=== PATIENT | female | born 1965 | race Caucasian/White ===

== ENCOUNTER → 2019-01-29 13:30 | Outpatient (CLI) | payer OTHER, SELFPAY ==
[2017-07-29 10:02] VITALS: BMI 23.8
--- NOTE | 2019-01-29 13:30 | ASPSI_PTH ---
PATIENT: HEIKE YANCEY LOC: [facility] U#:[id number] AGE/SX: 60/F ROOM: RE01/29/[address]: Dr. Lora Sloan MD : 1965 BED: DIS: SPEC #: [id number] RECD: 01/30/19 12:42 STATUS: [facility] REQ #: [id number] [place]: 01/29/19 13:[address]: Lora Sloan DEPT: CYTOLOGY RECD BY: Mercy Gutiérrez ENTERED: 01/30/19 13:55 SP TYPE: [facility]TR[facility]N DR: Dr. Rolando Jean MD Tissues: A - Inguinal region, NOS B - Inguinal region, NOS Procedures: Surgery Specimen Level IV Cytospin Fluid Cytology Other HEADER OPERATION: Fine needle aspiration of right groin mass PRE-OP DIAGNOSIS: Right groin mass TISSUE SUBMITTED: A. FNA right groin mass fluid for cytology, A. FNA right groin mass slides x4 DIAGNOSIS CYTOLOGY A. Right groin mass fluid for cytology, FNA (cytospin and cell block): Acellular specimen. B. Right groin mass, FNA (smears): Paucicellular specimen. Rare macrophages are noted. CODY:ashley 02/02/19 COMMENT Immediate cytologic evaluation to determine adequacy is not applicable. Correlation with clinical findings and appropriate follow up are necessary. Rebiopsy or excision of mass is suggested if clinically indicated. CYTOLOGY STUDY Slides are reviewed. CYTOLOGY GROSS A. Received is fluid in formalin container labeled with the patient's name and and designated per the requisition as FNA right groin mass. Submitted for cytology preparation including cell block. B. Received are 4 smears labeled with the patient's name and designated per the requisition as FNA right groin mass. Submitted for staining. / CC:cc 01/30/19 TC: Cannot code CPT: 20311, 96666, 28141
== END ==
PROVIDERS: Family Provider Family Medicine; PCP Family Medicine; Referring Provider Surgery; Visit Provider Surgery
DX: R22.2 Localized swelling, mass and lump, trunk (principal)
CPT/HCPCS: 88108; 88161; 88305

== ENCOUNTER 2019-02-21 08:46 | Emergency (ER) | payer OTHER, SELFPAY ==
[2019-02-21 08:47] VITALS: BP 156/77; PULSE 68; RESP 16; TEMP 36.7; O2SAT 99; BMI 23.9
--- NOTE | 2019-02-21 09:11 | ED.VIS.GEN ---
History of Present Illness Informant: Patient Onset: Days - 3 days Context: Gradual Onset Timing: Continuous Quality: lightheaded Location: head Current Severity: Severe Maximum Severity: Severe Worsened by: movement and ambulation Relieved by: rest Associated Symptoms: Vaginal bleeding, lightheadedness Narrative: 53-year-old female with a history of uterine fibroids presents to the emergency department with heavy vaginal bleeding and lightheadedness. Patient has been having scant and irregular periods for the past 8 months. She began spotting 1 week ago and then over the past 3 days has had heavy flow which is even heavier than a normal period for her in the past. This morning she has already changed 3 pads and then when she walked up the stairs got lightheaded and felt like she was going to pass out. Patient has never had bleeding as heavy. She has not passed clots or tissue. She does not have chest pain or shortness of breath. She denies any other symptoms of bleeding. She is not on blood thinners. She is never needed a blood transfusion. She is not on any oral contraceptive therapy. She denies urinary symptoms or abdominal pain. Denies vomiting. Denies diarrhea. Denies fevers night sweats chills or weight loss. Prior similar symptoms: No Recent Illness/Hospitalization: No <Tio Hunt - Last Filed: 02/21/19 10:45> <Jose CarlosSid - Last Filed: 02/26/19 07:09> Chief Complaint: Vag Bleeding - Past Medical History (1) Uterine fibroid Status: Chronic <Tio Hunt - Last Filed: 02/21/19 10:45> Past Medical History Prior records reviewed: Yes Surgical History: appendectomy Smoking Status: Never smoker Alcohol: Rare Drugs: None <Tio Hunt - Last Filed: 02/21/19 10:45> <Jose Carlos,Sid - Last Filed: 02/26/19 07:09> - Allergies and Home Meds Allergies/Adverse Reactions: Allergies No Known Allergies Allergy (Verified 02/21/19 09:31) Primary Care Physician: Rolando Jean MD [Primary Care Provider] - Chelsy Blake MD [STAFF PHYSICIAN] - Review of Systems General: Denies: Chills, Fever Eyes: Denies: Visual changes - left, Visual changes - right, Visual changes - bilaterally, Blurred vision - left, Blurred vision - right, Blurred Vision - bilaterally, Diplopia Cardiovascular: Denies: Chest pain, Palpitations, Heart racing Respiratory: Denies: Dyspnea, Dyspnea on exertion Gastrointestinal: Denies: Abdominal pain, Nausea, Vomiting, Diarrhea, Melena, Hematochezia Genitourinary: Denies: Dysuria, Hematuria Skin: Denies: Rash Neurological: Reports: - - lightheadedness. Denies: Headache, Weakness, Parasthesia, Numbness Hematologic: Denies: Easy bruising, Easy bleeding <Tio Hunt - Last Filed: 02/21/19 10:45> Physical Exam Vital Signs/Narrative: Vital Signs Temp Pulse Resp BP Pulse Ox 02/21/19 08:47 98.1 F 68 16 156/77 H 99 Inital Vital Signs reviewed: Yes General: Well nourished, Well developed, No Acute Distress Head: Normocephalic, Atraumatic Eyes: Perrl, EOMI ENT: Moist mucous membranes Neck: Supple, Nontender Cardiovascular: Regular rate, Regular rhythm Respiratory: No distress, CTA bilaterally, Chest nontender Abdomen: Soft, Nontender, Nondistended, Normal bowel sounds, No masses Back: Nontender Extremities: Nontender, No edema Skin: Normal color, No rash. Negative for: Pallor Neurological: Alert, Oriented x3, Normal Strength, Normal Sensation, Normal Gait Psychological: Normal affect <Tio Hunt - Last Filed: 02/21/19 10:45> Diagnostic/Tx/Re-eval - Medical Decision Making Orthostatic vital signs were negative. Patient's CBC was within normal limits, hemoglobin 13.4. At this time we will refer the patient to [facility]. She is hemodynamically stable. She will follow-up on Saturday which is in 48 hours, and was advised that if she is worsening symptoms that she should return to the emergency department for repeat evaluation. <Tio Hunt - Last Filed: 02/21/19 10:45> - Medical Decision Making Patient presents with abnormal vaginal bleeding. Patient has history of fibroids. She states she has been bleeding for a month. She reports plus minus orthostatic symptoms. She denies cardiac or respiratory symptoms. She has no other complaints. Vital signs noted. Orthostatic vital signs are negative. Hemoglobin is 13.4. She was discharged with follow-up evaluation in 48 hours. <Malika Brancho - Last Filed: 02/26/19 07:09> ED Disposition <Tio Hunt - Last Filed: 02/21/19 10:45> <Sid Branch - Last Filed: 02/26/19 07:09> - Plan for ED Patient: Disposition: Home or Assisted Living Diagnosis: Uterine fibroid, Dysfunctional uterine bleeding, Lightheadedness Instructions: Dysfunctional Uterine Bleeding Referrals: Rolando Jean MD [Primary Care Provider] - Chelsy Blake MD [STAFF PHYSICIAN] -
[2019-02-21 09:17] VITALS: BP 121/87; BP 127/91; BP 128/86; PULSE 68; PULSE 70; PULSE 75
[2019-02-21 09:36] LABS: Absolute Lymphocyte Count 1.17 X10^3/ul (0.83-4.51); Absolute Neutrophil Count 2.1 X10^3/uL (2.0-7.7); Basophil# 0.02 X10^3/uL; Basophil% 0.5 % (0-1); Eosinophil# 0.32 X10^3/uL; Eosinophils% 7.8 % (0-5); Hemoglobin 13.4 g/dl (12.0-15.0); Lymphocyte # 1.17 X10^3/ul (4.0); Lymphocyte % 28.6 % (19-41); Mean Corp Hgb Conc 33.5 g/gl (32-36); Mean Corpuscular Hgb 29.6 pg (27.0-32.0); Mean Corpuscular Volume 88.5 fL (81-99); Mean Platelet Vol. 10.5 fl (6.2-12.0); Monocyte% 12.2 % (0-10); Neutrophil # 2.08 X10^3/uL (2.7-7.7); Neutrophil % 50.9 % (47-70); Platelet Count 181 K/mm3 (150-450); RBC Distribution Width CV 12.4 % (11.6-14.6); RBC Distribution Width SD 39.5 fl (35.1-43.9); Red Blood Count 4.52 M/mm3 (4.2-5.4); White Blood Count 4.1 K/mm3 (4.4-11.0)
[2019-02-21 09:37] LABS: POSITIVE COUNT NO; POSITIVE DIFFERENTIAL NO; POSITIVE MORPHOLOGY NO
[2019-02-21 11:16] VITALS: BP 118/75; PULSE 70; RESP 14; TEMP 36.6; O2SAT 98
== END 2019-02-21 11:27 | disposition home or self-care (01) ==
PROVIDERS: Emergency Provider Physician Assistant Medical; Family Provider Family Medicine; PCP Family Medicine
DX: N93.9 Abnormal uterine and vaginal bleeding, unspecified (principal); D25.9 Leiomyoma of uterus, unspecified; N93.8 Other specified abnormal uterine and vaginal bleeding; R42 Dizziness and giddiness; Z79.899 Other long term (current) drug therapy
CPT/HCPCS: 36415; 85025; 99283